=== PATIENT | male | born 1990 | race African-American/Black ===

== ENCOUNTER 2018-09-09 11:13 | Emergency (ER) | payer MEDICAID ==
[~2018-09-09] VITALS: Ht 175.3 cm; Wt 79.5 kg
[2018-09-09 11:14] VITALS: Ht 175.3 cm; Wt 79.5 kg
[2018-09-09 11:50] LABS: HEMOGLOBIN 14.7 g/dL (13.5-17.5); LYMPHOCYTES 39.4 % (15-50); MCH 30.9 pg (26.0-34.0); MCV 88.4 fL (80.0-100.0); MEAN PLATELET VOLUME 8.7 fL (7.4-10.4); NEUTROPHILS 52.4 % (40-80); PLATELET COUNT 231 10x3/uL (130-400); RBC 4.75 10x6/uL (4.20-6.10); RDW 13.4 % (11.5-14.5); WBC 4.3 10x3/uL (4.8-10.8)
[2018-09-09 12:05] LABS: ALKALINE PHOSPHATASE 51 U/L (46-116); ALT (SGPT) 16 U/L (10-68); BILIRUBIN - TOTAL 0.77 mg/dL (0.2-1.3); CALC OSMOLALITY 281 mosm/kg (275-300); CALCIUM 9.4 mg/dL (8.5-10.1); CARBON DIOXIDE 28.3 mmol/L (21.0-32.0); CHLORIDE - SERUM 102 mmol/L (98-107); GLUCOSE 101 mg/dL (74-106); MAGNESIUM - SERUM 2.4 mg/dL (1.8-2.4); POTASSIUM - SERUM 3.4 mmol/L (3.5-5.1); PROTEIN - SERUM 8.3 g/dL (6.4-8.2); SODIUM 142 mmol/L (136-145); UREA NITROGEN 10 mg/dL (7-18); eGFR NON AFRICAN AMERICAN > 90 mL/min (90-120)
[2018-09-09 12:52] VITALS: BP 115/78
== END 2018-09-09 12:52 | disposition home or self-care (01) ==
LOC: D.ER 11:13
PROVIDERS: Emergency Medicine
DX: G40.909 Epilepsy, unspecified, not intractable, without status epilepticus (principal)